=== PATIENT | female | born 1990 | race Hispanic/Latino ===

== ENCOUNTER 2016-10-17 03:32 | Emergency (ER) | payer OTHER ==
[~2016-10-17] VITALS: Ht 154.9 cm; Wt 90.9 kg
[2016-10-17 03:33] VITALS: BP 132/92; PULSE 80; RESP 16; O2SAT 99
--- NOTE | 2016-10-17 03:54 | ED.REPORT ---
HPI-Abd Pain F Under 39 Date of Service Oct 17, 2016 ED Provider: Russ Lind MD Pt is a 26 year old female presenting to the ED complaining of RUQ abdominal pain with known gallstones onset 4 days ago. Pt reports that she has not yet followed up with a surgeon but plans to soon. Nursing Notes Stated Complaint: ABDOMINAL PAIN Chief Complaint: Female Abdominal Pain Nursing Notes Reviewed: Yes Allergies: Coded Allergies: Shellfish (Verified Allergy, Severe, Hives, throat swells, 10/17/16) Pt verablizes allergy Scheduled PRN Hydrocodone-Acetaminophen 5-325 mg (Hydrocodone-Acetaminophen 5-325 mg) 1 Each Tablet 1 TABLET PO Q4H PRN PRN For Pain General Time Seen by MD: 03:37 Chief Complaint Abdominal pain Hx Obtained From: Patient Arrived By: Walk-in Sudden in Onset?: No Onset Occurred: 4 days ago Symptom Duration: Since onset Progression since Onset: Constant Location: : RUQ Quality: Painful Radiation: : Does not radiate Severity: Current: Severe Severity: Maximum: Severe Recent Healthcare: No recent hospitalization, Recent doctor visit Similar Sx Previous: Yes Past Medical History Past Medical History Gallstones diagnosed 4 days ago Past Surgical History denies Smoking History Unknown if Ever Smoker Ambulatory Status Independent Review of Systems Respiratory: Denies: Shortness of breath, Wheezing GI: Reports: Abdominal pain, Denies: Vomiting Complete sys rev & neg: except as marked. Physical Exam Initial Vital Signs Vital Signs (First) Date Time Temp Pulse Resp B/P Pulse Ox O2 Delivery O2 Flow Rate FiO2 10/17/16 03:33 36.4 80 16 132/92 99 Room Air Initial VS: Reviewed, Vital signs abnormal Head / Eyes: Atraumatic, Normocephalic, PERRL ENT: Mucous membranes moist, Conjunctiva normal, No scleral icterus Extremities: Vascular intact, Neuro intact, No swelling, No tenderness Skin: Warm, Dry, No cyanosis Neurologic: Alert, Oriented, Nonfocal Psychiatric: Mood/affect normal, Behavior normal, Normal thought content General/Constitutional: Awake, Alert, Well appearing No jaundice or icterus Respiratory / Chest: Breath sounds NL, Breath sounds = bilat, No respiratory distress, No rales, No rhonchi, No wheezing Cardiovascular: Heart rate NL, Regular rhythm, Heart sounds NL, Peripheral circulation NL Tenderness/Guarding/Rebound: Positive: Tender RUQ... (Severe) Interpretation & Diagnostics Lab Results Interpretation Result Diagram: 10/17/16 0355 10/17/16 0355 Test 10/17/16 03:55 White Blood Count 9.2th/mm3 (3.8-10.1) Red Blood Count 4.52mil/mm3 (3.90-5.20) Hemoglobin 12.8g/dL (12.0-15.6) Hematocrit 38.3% (35.0-46.0) Mean Corpuscular Volume 84.7fL (81-100) Mean Corpuscular Hemoglobin 28.3pg (27.0-35.0) Mean Corpuscular Hemoglobin Concent 33.4% (32.0-37.0) Red Cell Distribution Width 13.3% (12.3-15.4) Platelet Count 326bil/L (150-400) Neutrophils (%) (Auto) 60.2% (40-74) Lymphocytes (%) (Auto) 29.9% (14-46) Monocytes (%) (Auto) 9.0% (4-12) Eosinophils (%) (Auto) 0.4% (0-5) Basophils (%) (Auto) 0.2% (0-3) Sodium Level 137mEq/L (134-144) Potassium Level 3.7mEq/L (3.5-5.2) Chloride Level 99mEq/L (97-108) Carbon Dioxide Level 23mmol/L (18-29) Blood Urea Nitrogen 10mg/dL (6-20) Creatinine 0.48mg/dL (0.57-1.00) Estimat Glomerular Filtration Rate 222mL/min (>59) Glucose Level 95mg/dL (60-99) Calcium Level 8.7mg/dL (8.5-10.1) Magnesium Level 1.7mg/dL (1.6-2.6) Total Bilirubin 0.4mg/dL (0.0-1.2) Aspartate Amino Transf (AST/SGOT) 50U/L (0-50) Alanine Aminotransferase (ALT/SGPT) 75U/L (0-32) Alkaline Phosphatase 98U/L (25-150) Total Protein 7.5g/dL (6.4-8.4) Albumin 4.2g/dL (3.4-5.0) Lipase 14U/L (13-60) Hold Gallardo Top Tube Received (Received) Lab Results Interpretation: Mild elevation of ALT Re-Eval/Medical Decision Med Decision/Clinical Course 26-year-old female with known gallstones presents with biliary colic. She does not appear on clinical evaluation to have cholecystitis, pancreatitis, or significant hepatitis. Her pain resolved. She is being discharged home with instructions to avoid larger fatty meals. She was given a prescription of pain medicine to be used for recurrent episodes. She will follow up as soon as possible with a surgeon for evaluation for cholecystectomy. Re-Evaluation/Progress : Time of Eval: 04:56 Patient Status: Condition improved Re-Evaluation/Progress Note: Discussed plan for discharge. Pt understands and agrees with plan. Counseled Regarding: Diagnosis, Lab results, Need for follow-up, When/why to return to ED Discharge & Departure Primary Impression: Cholelithiasis Cholelithiasis location: gallbladder Cholecystitis presence: without cholecystitis Biliary obstruction: without biliary obstruction Qualified Code : K80.20 - Calculus of gallbladder without cholecystitis without obstruction Disposition: Home Discharge Condition All VS Reviewed: Yes Condition: Improved Patient Instructions: Biliary Colic (ED) Additional Instructions: The stones will not go away. You need to get your gall bladder removed. Contact Dr. Barrios to talk about surgery. Return here if you get recurrent pain. Avoid large meals and fatty food. Referrals: Andrew Velasquez MD (PCP) Scribe Attestation Portions of this note were transcribed by Trena Hernandez. I, Dr. Lind personally performed the history, physical exam and medical decision-making; I reviewed and confirmed the accuracy of the information in the transcribed note. Signed by: Og Degroot, 10/17/2016 and 4528. copies to: Andrew Velasquez MD, Howard L MD Oct 17, 2016 03:54 TRENA HERNANDEZ Oct 17, 2016 03:59
[2016-10-17] MEDS ORDERED: Ondansetron 2 mg/mL 2 mL Inj IVPUSH PRN (04:00)
[2016-10-17 04:01] LABS: BASOPHILS % (AUTO) 0.2 % (0-3); EOSINOPHILS % (AUTO) 0.4 % (0-5); Mean Corpuscular Hemoglobin 28.3 pg (27.0-35.0); Mean Corpuscular Volume 84.7 fL (81-100); NEUTROPHILS % (AUTO) 60.2 % (40-74); Platelet Count 326 bil/L (150-400)
[2016-10-17] MEDS: HYDROmorphone 0.5 mg/0.5 mL iSecure Syringe IVPUSH PRN ×2 (04:07→04:27)
[2016-10-17 04:22] LABS: Magnesium 1.7 mg/dL (1.6-2.6)
[2016-10-17] MEDS ORDERED: HYDR-4003 PO (05:10)
[2016-10-17 05:18] VITALS: BP 130/76; PULSE 85; RESP 16; O2SAT 98
[2016-11-01] MEDS ORDERED: LORA0.5T PO (16:59)
[2016-11-01] MEDS ORDERED: FLUO20CA25 PO (16:59)
== END 2016-10-17 04:55 | disposition home or self-care (01) ==
LOC: SED 03:32
DX: K80.20 Calculus of gallbladder without cholecystitis without obstruction (principal); Z91.013 Allergy to seafood
CPT/HCPCS: 36415; 80053; 83690; 83735; 85025; 96374; 96375; 99284; J1170; J2405

== ENCOUNTER 2016-11-04 06:27 | Day surgery (SDC) | payer OTHER ==
[2016-11-04] VITALS (14 sets, daily range): BP systolic 97–167; BP diastolic 59–97; PULSE 67–123; RESP 5–20; O2SAT 90–100
[~2016-11-04] VITALS: Ht 154.9 cm; Wt 105.8 kg
[~2016-11-04 06:27] MED LIST: FLUO20CA25 PO; LORA0.5T PO
[2016-11-04] MEDS ORDERED: Propofol 10,000 mCg/mL 20 mL Inj ONE (06:28)
[2016-11-04] MEDS ORDERED: MetoCLOpramide 5 mg/mL 2 mL Inj ONE (06:28)
[2016-11-04] MEDS ORDERED: Ondansetron 2 mg/mL 2 mL Inj ONE (06:28)
[2016-11-04] MEDS ORDERED: Neostigmine 1 mg/mL 5 mL Inj ONE (06:28)
[2016-11-04] MEDS ORDERED: Glycopyrrolate 0.2 mg/mL 5 mL Inj ONE (06:28)
[2016-11-04] MEDS ORDERED: Dexamethasone 4 mg/mL Inj ONE (06:28)
[2016-11-04] MEDS ORDERED: EPHEDrine/NS 5 mg/mL 5 mL Syringe ONE (06:28)
[2016-11-04] MEDS ORDERED: Rocuronium 10 mg/mL 5 mL Inj ONE (06:28)
[2016-11-04] MEDS ORDERED: fentaNYL-PF 50 mCg/mL 2 mL Inj ONE (06:28)
[2016-11-04] MEDS: Lactated Ringer's 1,000 ML IV SCH ×3 (06:40→12:04)
[2016-11-04] MEDS ORDERED: Bupivacaine-MPF 0.25%/EPI 30 mL Inj INJ ONE (08:50)
[2016-11-04] MEDS ORDERED: Lactated Ringer's 1,000 ML IV SCH (08:51)
[2016-11-04] MEDS ORDERED: Lactated Ringer's 500 ML IV PRN (08:51)
--- NOTE | 2016-11-04 08:51 | PCM.HPANE ---
Patient Data Surgeon Admitting Provider: Attending Provider:Aris Maradiaga MD Primary Care Physician:Andrew Velasquez MD Other Provider: Reason for Visit Symptomatic Gallstones Ht/WT & BMI Height (Feet): 5 Height (Inches): 1 Weight (Kilograms): 105.8 Body Mass Index 44.00 Allergies Coded Allergies: Shellfish (Verified Allergy, Severe, Hives, throat swells, 11/01/16) Pt verablizes allergy- per pt no problems with topical iodine Uncoded Allergies: ADHESIVE TAPES (Allergy, Unknown, reddness, rash, 11/01/16) Past Anesthesia History Anesthesia History: Denies:: Abnormal Airway, Anesthesia Reactions, Difficult Intubation, Fam Anesthesia Reaction, Fam Malignant Hypertherm Diabetes History Hx Diabetes?: No MRSA MRSA: No Medications Hypertension Medication: No Home Meds Incl Beta Ke: No Reported Medications Lorazepam 0.5 Mg Tablet0.5 Mg PO TID PRN For Anxiety Ref 0 11/01/16 Fluoxetine 20 Mg [id number] Mg PO DAILY Ref 0 11/01/16 Discontinued Scripts Hydrocodone-Acetaminophen 5-325 mg 1 Each Tablet1 Tablet PO Q4H PRN For Pain # 10 TABLET Prov:Russ Lind MD 10/17/16 History HEENT History: Denies:: Abnormal Airway Cataracts Difficult Intubation Dysphagia Glaucoma Hearing Problem Sinus Problem TMJ Cardiovascular History: Denies:: AICD Abdominal Aortic Aneurism Atrial Fibrillation Chest Pain Congestive Heart Failure Coronary Artery Disease Edema Heart Murmur Hypertension Irregular Heartbeat Pacemaker Peripheral Vascular Rheumatic Fever Thrombophlebitis Valvular Heart Disease Hx of Respiratory Problem?: No Respiratory History: Denies:: Asthma COPD Emphysema Oxygen Administration Pneumonia Tuberculosis Use of C-PAP Machine Hx Neurologic Problems?: No Neurological History: Denies:: CVA Dizziness Headaches Multiple Sclerosis Parkinson's Disease Seizures TIA Hx of GI Problems?: Yes Gastrointestinal History: Positive for:: Gall Bladder Disease (current admission problem) Denies:: Gastroesphageal Reflux Heartburn Hepatitis Hiatal Hernia Liver Disease Rectal Bleeding Hx of Problems?: No Genitourinary History: Denies:: Kidney Stones Urinary Tract Infection Female Hx: Denies:: Currently Problems with Breasts? Skin History: Denies:: History Skin Disorders? Pressure Ulcers Hx Musculoskeletal Problems?: No Musculoskeletal History: Denies:: Back Injury Fibromyalgia Joint Replacement Musculoskeletal Trauma Myasthenia Gravis Osteoarthritis Systemic Lupus Hx of Psycho/Social Problems?: Yes Psycho Social History: Positive for:: Anxiety Hx Depression Hx Surgeries?: Yes (oral surgery) Hx Any Other Health Problems?: Yes Other History: Denies:: Cancer Thyroid Disease History Blood Transfusions: Positive for:: Accept Blood Products? Denies:: Blood Transfusions Hx Diabetes: No Hx Alcohol Use: NoHx Substance Use: No Smoking Status: Unknown if Ever Smoker Have You Smoked inLast 12 mo: No Stop/Bang S-Snoring: Do You Snore Loudly: No T-Tired: feel tired, fatigued: Yes O-Obsered: Observed not breath: No P-Blood Pressure: treated: No B- Body Mass Index > 35 kg/m2: No A- Age over 50: No N- Neck Large Circumference: No G- Gender Male: No GHANSHYAM Total Score: 1 Risk Assessment Category Category 1A: Patient has history of documented sleep apnea, and HAS NOT received any narcotic, sedative or anesthesia administration during this stay. Category 1B: Patient has history of documented sleep apnea, and HAS received any narcotic , sedative or anesthesia administration during this stay Category 2: Patient has SUSPECTED Obstructive Sleep Apnea, and HAS received any narcotic , sedative or anesthesia administration during this stay. Category 3: Patient has SUSPECTED Obstructive Sleep Apnea and HAS NOT received narcotic, sedative or anesthesia administration during this stay. Category 4: Outpatient in Procedural Areas with known sleep apnea or who screen positive for High Risk via the STOP/BANG questionnaire. Exam Exam Vital Signs Vital Signs Date Time Temp Pulse Resp B/P Pulse Ox O2 Delivery O2 Flow Rate FiO2 11/04/16 06:55 36.4 67 16 123/71 98 Room Air General Appearance: Alert, Oriented X3, Cooperative, No Acute Distress HEENT/AIRWAY: MP 2, Neck Movement (FROM), Mouth Opening (3 FBMO) Lungs: Clear to Auscultation, Normal Air Movement Heart: Exam Unremarkable, Regular Rate/Rhythm, No Murmurs/Rubs/Gallops Meds/Labs/Diagnostics Admission Meds Current Medications Lactated Ringer's (Lr) 1,000 ml @ 120 mls/hr Q8H20M IV Last administered on t 06:40; Start 11/04/16 at 05:00; Stop 11/04/16 at 13:19 Gabapentin (Neurontin) 600 mg PREOP ONCE PO Last administered on 11/04/16 06: 41; Start 11/04/16 at 06:00; Stop 11/04/16 at 06:02; Status DC Celecoxib (CeleBREX) 200 mg PREOP ONCE PO Last administered on 11/04/16 06:41 ; Start 11/04/16 at 06:00; Stop 11/04/16 at 06:02; Status DC Scopolamine (Transderm-Scop Patch) 1.5 mg ONCE ONCE TOPICAL Last administered on 11/04/16 06:41; Start 11/04/16 at 05:00; Stop 11/04/16 at 05:01; Status DC Acetaminophen (Tylenol) 650 mg PREOP ONCE PO Last administered on 11/04/16 06: 41; Start 11/04/16 at 06:00; Stop 11/04/16 at 06:02; Status DC Plan Impression Patient chart reviewed, patient interviewed and anesthestic plan with risks, benefits, and alternatives discussed, and informed consent obtained. NPO Status: [id number] SIP W PRE OP MEDS ASA Physical Status: ASA2 Mod Systemic Disease Anesthetic Plan: GA Bene/Risks/Altern/Consents: Yes HP Complete Prior to Induction: Yes Addy Verde MD Nov 04, 2016 07:46
[2016-11-04] MEDS ORDERED: hydrALAZINE 20 mg/mL Inj IVPUSH PRN (08:55)
[2016-11-04] MEDS ORDERED: Ondansetron 2 mg/mL 2 mL Inj IVPUSH PRN (08:55)
[2016-11-04] MEDS ORDERED: Phenylephrine 10,000 mCg/mL Inj IVPUSH PRN (08:55)
[2016-11-04] MEDS ORDERED: Atropine 0.4 mg/mL Inj IVPUSH PRN (08:55)
[2016-11-04] MEDS ORDERED: Labetalol 5 mg/mL 4 mL Inj IV PRN (08:55)
[2016-11-04] MEDS ORDERED: MetoCLOpramide 5 mg/mL 2 mL Inj IVPUSH PRN (08:55)
[2016-11-04] MEDS ORDERED: EPHEDrine Sulfate 50 mg/mL Inj IVPUSH PRN (08:55)
[2016-11-04] MEDS ORDERED: oxyCODONE-Acetamin 5-325 mg Tablet PO PRN (10:20)
[2016-11-04] MEDS: HYDROmorphone 1 mg/mL Inj IVPUSH PRN ×3 (10:23→11:06)
--- NOTE | 2016-11-04 10:32 | PCM.ANEP2 ---
Post Anesthesia Evaluation ASA/CMS Post Anesthesia VS in Patient's Normal Range?: Yes Resp Stable; Airway Patent?: Yes CV Function & Hydration Stable: Yes Mental Status Recovered?: Yes Pain control Satisfactory?: Yes N/V Control Satisfactory?: Yes Addy Verde MD Nov 04, 2016 10:32
--- NOTE | 2016-11-04 10:32 | PCM.ANEP1 ---
Post Anesthesia Phase 1 PACU Phase 1 Assessment Vital Signs Vital Signs Date Time Temp Pulse Resp B/P Pulse Ox O2 Delivery O2 Flow Rate FiO2 11/04/16 10:15 79 9 145/61 98 Simple Mask 10 11/04/16 10:10 75 5 136/59 97 Simple Mask 10 11/04/16 10:05 37.1 154/80 11/04/16 06:55 36.4 67 16 123/71 98 Room Air Anesthetic Administered: GA Level of Alertness: Awake, talking THAPA's with Equal Strength: Yes Pain: No Nausea or Vomiting: No Oxygen Delivery: Simple Mask Lungs: Clear to Auscultation, Normal Air Movement Dermatome Level: Full Sensation Addy Verde MD Nov 04, 2016 10:32
[2016-11-04] MEDS: fentaNYL-PF 50 mCg/mL 2 mL Inj IVPUSH PRN ×3 (10:36→10:51)
--- NOTE | 2016-11-04 11:32 | OP ---
[address] [address] OPERATIVE REPORT PATIENT: KORY GARCIA : 1990 MR#: [id number] ADMIT: 11/04/2016 JOB ID: [id number] DATE OF SURGERY: 11/04/2016 ANESTHESIA: General. PREOPERATIVE DIAGNOSIS(ES): Symptomatic cholelithiasis. POSTOPERATIVE DIAGNOSIS(ES): Chronic calculous cholecystitis. OPERATION: Laparoscopic cholecystectomy with intraoperative cholangiogram. SURGEON: Aris Maradiaga MD. TACK DRILLER: Darnell Johnson PA-C. (The assistant superintendent was required for the safe and timely completion of the case). COMPLICATIONS: None. ESTIMATED BLOOD LOSS: Minimal. CONDITION: Satisfactory. SPECIMEN: Gallbladder. FINDINGS: The gallbladder was acutely inflamed, distended and thickened. Because the cystic duct seemed larger than usual, I performed a cholangiogram which was unremarkable with good flow into the duodenum and normal biliary anatomy. INDICATIONS/SIGNIFICANT HISTORY: The patient is an obese 26-year-old female, who for the past five months has been having episodic right upper quadrant postprandial abdominal pain. Ultrasound had demonstrated cholelithiasis. She was eventually sent to me and I recommended a cholecystectomy. OPERATIVE TECHNIQUE: The patient was taken into the operating room and placed in the supine position. General anesthesia was administered. The abdomen was prepped and draped in the standard surgical fashion and a procedural pause was performed. Entry was gained into the abdomen through a supraumbilical incision using a 10 mm Optiview trocar. Pneumoperitoneum was achieved without complication. Local anesthetic was injected, followed by insertion of 5 mm ports in the subxiphoid as well as two in the right upper quadrant. The gallbladder was distended. I used a laparoscopic aspiration needle to aspirate clear fluid and a little bit of purulent material. The gallbladder is then grasped and retracted cephalad. Dissection was begun to identify the cystic duct and cystic artery to achieve a critical view of safety. The cystic artery was clearly identified, coursed under the lymph node onto the gallbladder. This was taken by placing a clip and then with electrocautery to facilitate dissection. Eventually, the duct was well defined and the base of the gallbladder dissected off the cystic plate. The duct seemed a little larger than usual so I elected to do a cholangiogram. A single clip was placed on the gallbladder duct junction and ductotomy made. Cholangiogram was obtained with findings as above. Two subsequent clips were placed distally on the duct and the duct transsection. The remainder of the dissection of the gallbladder off the cystic plate was then completed. There was inadvertent entry into the gallbladder and spillage of fine stones and bile. The surgical bed was copiously irrigated. The gallbladder was placed in EndoCatch bag and removed through the umbilical port site. The fascia there was closed with a 0 PDS with a laparoscopic suture passer. The lateral ports were then removed under direct visualization, followed by release of pneumoperitoneum. The skin was closed using 4-0 Monocryl. The entire procedure was well tolerated without complication.
--- NOTE | 2016-11-04 15:57 | DRSVH ---
PROCEDURE: X-RAY OPERATIVE CHOLANGIOGRAM ([id number]) INDICATIONS: SYMPTOMATIC GALLSTONES COMPARISON: None. FINDINGS: Biliary ducts: The surgeon injected contrast into the biliary ducts after cannulation of the cystic duct stump. Visualized intra- and extrahepatic bile ducts are normal in caliber, without strictures. No intraluminal filling defects to suggest retained ductal stones or sludge. No evidence for iatro genic ductal injury. Duodenum: Contrast flows promptly through the sphincter of Oddi into the duodenum, which appears nor mal in caliber. IMPRESSION: Normal operative cholangiogram. Dictated by: Dharmesh Duke RR Interpreted: Karo Apple MD on 11/04/2016 at 15:56 Transcribed by: ALEXIS on 11/04/2016 at 15:57 Approved by: Karo Apple MD, PhD on 11/04/2016 at 17:04
--- NOTE | 2016-11-08 12:19 | PATH ---
SURGICAL PATHOLOGY Attending Physician:Aris Maradiaga MD CASE STATUS: Signed Out PATIENT NAME: KORY GARCIA PID: [id number] : 1990 DATE COLLECTED:11/04/2016 15:41 SPECIMEN: Gallbladder CLINICAL HISTORY: SYMPTOMATIC GALLSTONES, SYMPTOMATIC GALLSTONES 1). GALLBLADDER FINAL DIAGNOSIS: Gallbladder: Chronic cholecystitis with cholelithiasis. No evidence of malignancy. Pericystic duct lymph node with no evidence of malignancy. ICD10: K80.6 GROSS DESCRIPTION: The specimen is received in formalin, labeled with the patient's name, sublabeled as gallbladder and consists of an opened gallbladder (length-11.5 cm, diameter-3.0 cm) with a partially obstructed cystic duct. A possible and 0.6 x 0.5 x 0.5 cm) is identified. The serosa is purple-pink smooth and shiny. The lumen contains multiple yellow bosselated oblong semi-soft calculi (1.5 x 1.2 x 0.5 cm in aggregate, each approximately 0.6 x 0.5 x 0.4 cm). The mucosa is red-brown with a trabeculated appearance. The wall is up to 0.2 cm thick. No nodules, masses or lesions are identified. Section code: (A) gallbladder, utility sales representative; (B) one lymph node, bisected, entirely submitted. 11/04/16 ICD-9 CODES: CPT CODES: 1: 36268 Electronically Signed Out Garry Jones MD [facility] [address], [place] [address] Technical component performed at [facility], [facility] [address], [place], [address]
== END 2016-11-04 23:59 | disposition home or self-care (01) ==
LOC: SAS 06:27
PROVIDERS: ATTEND General Practice
PROC: BF001ZZ Plain Radiography of Bile Ducts using Low Osmolar Contrast (ICD-10-PCS; 2016-11-04)
PROC: 0FT44ZZ Resection of Gallbladder, Percutaneous Endoscopic Approach (ICD-10-PCS; principal; 2016-11-04 08:30)
DX: K80.10 Calculus of gallbladder with chronic cholecystitis without obstruction (principal)
CPT/HCPCS: 47563; 74300; 88304; J1100; J1170; J1200; J2250; J2405; J2710; J2765; J3010; J7120; Q9967